=== PATIENT | female | born 1950 | race Hispanic/Latino ===

== ENCOUNTER 2016-07-16 10:21 | Outpatient (CLI) | payer MEDICARE ==
--- NOTE | 2016-07-16 11:13 | Ultrasound Report ---
Left breast ultrasound: Imaging of the left breast as compared to her prior study in January 2016. In the 7:00 location the patient has a well defined hypoechogenic mass with a focal area of internal echodensity along the posterior wall which has remained relatively stable. The mass has increased in size from 5.5 mm to 7.6 mm. In addition there is a focal area of intense blood flow within the lesion that was not previously identified. Impressions: Indeterminate left breast mass. Recommendation: Ultrasound-guided left breast biopsy. The findings and recommendations have been discussed with the patient and she has been notified to contact you for scheduling. BI-RADS CATEGORY: 0 = Needs additional imaging evaluation ACR BI-RADS MAMMOGRAPHIC CODES: 0 = Needs additional imaging evaluation; 1 = Negative; 2 = Benign; 3 = Probably benign; 4 = Suspicious; 5 = Malignant; 6 = Known biopsy-proven malignancy COMMENT: 1. Dense breast tissue, i.e., adenosis, fibrocystic changes, etc., may obscure an underlying neoplasm. 2. Approximately 10% of cancers are not detected with mammography. 3. A negative mammography report should not delay biopsy if a clinically suspicious mass is present.
== END 2016-07-16 10:22 | disposition home or self-care (01) ==
LOC: SPVWC 10:21
PROVIDERS: ATTEND Obstetrics & Gynecology
DX: N63 Unspecified lump in breast (principal); R92.8 Other abnormal and inconclusive findings on diagnostic imaging of breast

== ENCOUNTER 2016-07-27 10:38 | Outpatient (CLI) | payer MEDICARE ==
--- NOTE | 2016-07-27 12:09 | Mammography Report ---
LEFT DIGITAL DIAGNOSTIC MAMMOGRAM: 07/27/16 10:38:00 CLINICAL: For clip placement immediately status post ultrasound biopsy. COMPARISON:01/15/16 FINDINGS: A biopsy clip is now identified at 7 o'clock and correlates with the previously described mammographic mass. The mass is smaller and much less conspicuous on this exam. IMPRESSION: Concordant clip placement status post ultrasound biopsy. BI-RADS CATEGORY: 4--Suspicious Pathology pending.
--- NOTE | 2016-07-27 12:14 | Ultrasound Report ---
ULTRASOUND GUIDED NEEDLE CORE BIOPSY LEFT BREAST WITH CLIP PLACEMENT: 07/27/16 CLINICAL: Left breast mass at 7 o'clock 5 cm from the nipple. COMPARISON :07/16/16 FINDINGS: The procedure was explained to the patient and informed consent was obtained. Ultrasound demonstrated the previously described lesion at 7 o'clock.. I marked the breast with a felt tip marker and a time out was called. The skin was prepped with Betadine and anesthetized with 1% lidocaine. Needle core biopsy was performed through a tiny dermatotomy using ultrasound guidance, 2% lidocaine with epinephrine for deep anesthesia and a 14-gauge Achieve biopsy device. Imaging demonstrated satisfactory sampling with partial collapse of the lesion. Three cores were obtained and placed in formalin. A clip was ovoid within the mass. The patient tolerated the procedure well and there were no apparent complications. Hemostasis was achieved with gentle pressure and a sterile dressing was applied. A two view mammogram demonstrated concordant placement of the clip and a less prominent mammographic mass. She left the department in good condition and was given instructions for wound care and followup. IMPRESSION: Uncomplicated ultrasound guided needle core biopsy with clip placement left breast.
== END 2016-07-27 10:39 | disposition home or self-care (01) ==
LOC: SPVWC 10:38
PROVIDERS: ATTEND Obstetrics & Gynecology
DX: N63 Unspecified lump in breast (principal); R92.8 Other abnormal and inconclusive findings on diagnostic imaging of breast
CPT/HCPCS: 19083; 88305; A4648; G0206; 88342

== ENCOUNTER 2017-03-21 14:22 | Outpatient (CLI) | payer MEDICARE ==
--- NOTE | 2017-03-21 15:54 | Mammography Report ---
Screening mammogram: Routine views are compared to prior exams in 2016. The patient's breast pattern is generally fatty replaced. Scattered tiny nodules are present bilaterally unchanged from prior exams. A single biopsy clip is noted on the left and 2 on the right. The findings are not otherwise remarkable. CAD used. Impression: Stable breast pattern. Recommendation: Annual mammogram followup. BI-RADS CATEGORY: 2 = Benign ACR BI-RADS MAMMOGRAPHIC CODES: 0 = Needs additional imaging evaluation; 1 = Negative; 2 = Benign; 3 = Probably benign; 4 = Suspicious; 5 = Malignant; 6 = Known biopsy-proven malignancy COMMENT: 1. Dense breast tissue, i.e., adenosis, fibrocystic changes, etc., may obscure an underlying neoplasm. 2. Approximately 10% of cancers are not detected with mammography. 3. A negative mammography report should not delay biopsy if a clinically suspicious mass is present.
== END 2017-03-21 14:23 | disposition home or self-care (01) ==
LOC: SPVWC 14:22
PROVIDERS: ATTEND Obstetrics & Gynecology
DX: Z12.31 Encounter for screening mammogram for malignant neoplasm of breast (principal)
CPT/HCPCS: 77067; G0202

== ENCOUNTER 2018-03-22 10:34 | Outpatient (CLI) | payer MEDICARE ==
--- NOTE | 2018-03-22 16:02 | Mammography Report ---
BILATERAL DIGITAL SCREENING MAMMOGRAM with CAD: 03/22/18 10:34:00 CLINICAL: Routine screening.Status post left ultrasound guided needle biopsy 07/27/16 with pathologic diagnosis of fibrocystic disease, proliferative type. COMPARISON:03/21/17 FINDINGS: The breasts are almost entirely fatty.A left lower inner biopsy clip is adjacent to the previously biopsied mass which has enlarged since the last exam. It now measures 1.2 cm there are 0.8 cm on last exam. No new mass, architectural distortion or suspicious calcifications. The right breast is negative. IMPRESSION: Enlargement of the previously biopsied left breast mass. Recommend recall for targeted ultrasound to reevaluate the mass at 7 o'clock 5 cm from the nipple. BI-RADS CATEGORY: 0--Needs Additional Imaging COMMENT: Patient follow-up letters are generated by our [employer] application.
== END 2018-03-22 10:35 | disposition home or self-care (01) ==
LOC: SPVWC 10:34
PROVIDERS: ATTEND Obstetrics & Gynecology
DX: Z12.31 Encounter for screening mammogram for malignant neoplasm of breast (principal)
CPT/HCPCS: 77067